=== PATIENT | male | born 1985 | race Caucasian/White ===

== ENCOUNTER 2021-03-07 18:43 | Emergency (ER) | payer SELFPAY ==
[~2021-03-07] VITALS: Ht 170.2 cm; Wt 90.0 kg
[2021-03-07] MEDS ORDERED: CEFTRIAXONE SODIUM 1 G/VIAL IM ONE (21:00)
[2021-03-07] MEDS ORDERED: SULFAMETHOXAZOLE/TRIMETHOPRIM 800/160MG TABLET PO ONE (21:00)
[2021-03-07] MEDS ORDERED: LIDOCAINE HCL 1% 20ML VIAL (Pyxis) INJ INFIL ONE (21:00)
[2021-03-07] MEDS ORDERED: CEPH500C2 MT (21:58)
[2021-03-07] MEDS ORDERED: SULF1TAB48 MT (21:58)
[2021-03-07] MEDS ORDERED: IBUPROFEN 400MG TABLET PO ONE (22:15)
[2021-03-07 23:00] VITALS: BP 120/88
== END 2021-03-07 23:46 | disposition home or self-care (01) ==
LOC: ER 18:43
DX: L03.114 Cellulitis of left upper limb (principal); B95.62 Methicillin resistant Staphylococcus aureus infection as the cause of diseases classified elsewhere; L98.9 Disorder of the skin and subcutaneous tissue, unspecified
CPT/HCPCS: 82962; 96372; 99283; J0696; J3490